=== PATIENT | male | born 1995 | race Caucasian/White ===

== ENCOUNTER 2019-02-22 14:37 | Emergency (ER) | payer OTHER ==
[~2019-02-22] VITALS: Ht 182.9 cm; Wt 95.3 kg
[2019-02-22 15:46] VITALS: BP 120/75
== END 2019-02-22 15:46 | disposition home or self-care (01) ==
LOC: M.ERS 14:37
DX: S01.01XA Laceration without foreign body of scalp, initial encounter (principal); Z88.0 Allergy status to penicillin; W20.8XXA Other cause of strike by thrown, projected or falling object, initial encounter; Y93.89 Activity, other specified; Y92.69 Other specified industrial and construction area as the place of occurrence of the external cause; Y99.8 Other external cause status